=== PATIENT | female | born 1960 | race African-American/Black ===

== ENCOUNTER 2017-07-24 19:26 | Inpatient (IN) | payer OTHER ==
[~2017-07-24] VITALS: Ht 149.9 cm; Wt 95.3 kg
[2017-07-24 19:30] VITALS: BP 150/88
[2017-07-24 20:11] LABS: BASOPHILS 0.8 % (0.0-2.0); EOSINOPHILS 1.1 % (0.0-3.0); HEMATOCRIT 41.2 % (37.0-47.0); HEMOGLOBIN 13.4 gm/dL (12.0-15.0); LYMPHOCYTES 18.5 % (24.0-44.0); MCH 26.3 pg (26.0-34.0); MCHC 32.5 g/dL (28.0-37.0); MCV 80.9 fL (80.0-100.0); MONOCYTES 8.2 % (1.0-8.0); PLATELET COUNT 362 thou/uL (150-400); POLYS 71.4 % (36.0-66.0); RDW 16.2 % (10.5-14.5); WBC 8.5 thou/uL (4.0-11.0)
[2017-07-24 20:18] LABS: CALCIUM 9.4 mg/dL (8.5-10.1); CREATININE 0.6 mg/dL (0.6-1.0); POTASSIUM 4.9 mmol/L (3.5-5.1)
[2017-07-24 23:25] VITALS: BP 152/53
[2017-07-25] MEDS ORDERED: METFORMIN HCL500 MG PO (00:15)
[2017-07-25] MEDS ORDERED: PREDNISONE 5 MG5 M1 PO (00:16)
[2017-07-25] MEDS ORDERED: NP THYROID90 MG PO (00:16)
[2017-07-25] MEDS ORDERED: HYDROXYCHLOROQ200 M1 PO (00:17)
[2017-07-25 00:18] VITALS: BP 139/52
[2017-07-25] MEDS ORDERED: CELEBREX 200 M200 M1 PO (00:22)
[2017-07-25] MEDS ORDERED: AMBIEN 5 MG TABL5 M1 PO (00:59)
[2017-07-25 04:52] VITALS: BP 112/61
[2017-07-25 05:45] LABS: CALCIUM 8.8 mg/dL (8.5-10.1); CREATININE 0.6 mg/dL (0.6-1.0)
[2017-07-25 08:58] VITALS: BP 111/44
[2017-07-25 16:15] VITALS: BP 121/45
[2017-07-25 19:08] VITALS: BP 135/54
[2017-07-25 21:01] LABS: URINE BILIRUBIN NEGATIVE (Negative); URINE BLOOD NEGATIVE (Negative); URINE CLARITY CLEAR; URINE COLOR YELLOW; URINE GLUCOSE-RANDOM* NEGATIVE (Negative); URINE KETONES NEGATIVE (Negative); URINE LEUKOCYTES-REFLEX NEGATIVE (Negative); URINE NITRITE-REFLEX NEGATIVE (Negative); URINE PROTEIN (DIPSTICK) NEGATIVE (Negative); URINE UROBILINOGEN 0.2 E.U./dl (0.2-1.0)
[2017-07-26 08:52] VITALS: BP 111/38
[2017-07-26 09:41] VITALS: BP 111/38
== END 2017-07-26 11:48 | disposition home or self-care (01) | DRG 552 ==
LOC: ER 19:26 → EROBS 21:34 → 4W 21:34
PROVIDERS: Internal Medicine; Nurse Practitioner Family; Physician Assistant
DX: M51.37 Other intervertebral disc degeneration, lumbosacral region (principal); M54.30 Sciatica, unspecified side; M43.16 Spondylolisthesis, lumbar region; M47.896 Other spondylosis, lumbar region; E03.9 Hypothyroidism, unspecified; E11.9 Type 2 diabetes mellitus without complications; R20.2 Paresthesia of skin; L94.8 Other specified localized connective tissue disorders; Z98.891 History of uterine scar from previous surgery; Z90.49 Acquired absence of other specified parts of digestive tract
CPT/HCPCS: 10047